=== PATIENT | female | born 1975 | race African-American/Black ===

== ENCOUNTER 2020-10-27 06:27 | Day surgery (SDC) | payer BC ==
[2020-10-17 11:51] VITALS: BMI 37.5
[2020-10-27] MEDS ORDERED: MIDAZOLAM HCL 2 MG/2 ML SINGLE DOSE VIAL ONE (07:51)
[2020-10-27] MEDS ORDERED: SUCCINYLCHOLINE CHLORIDE 200 MG/10 ML SYRINGE ONE (08:03)
[2020-10-27] MEDS ORDERED: PROPOFOL 20 ML ONE ×2 (08:03→08:20)
[2020-10-27] MEDS ORDERED: ceFAZolin SODIUM 1 GM VIAL ONE (08:04)
[2020-10-27] MEDS ORDERED: DEXAMETHASONE SOD PHOSPHATE 4 MG/1 ML VIAL ONE (08:06)
[2020-10-27] MEDS ORDERED: ONDANSETRON 4 MG/2 ML VIAL ONE (08:06)
[2020-10-27] MEDS ORDERED: BUPIVACAINE HCL/PF 0.5% (5 MG/ML) 30 ML VIAL IJ ONE (08:10)
[2020-10-27] MEDS ORDERED: LIDOCAINE HCL 1%, 10 MG/ML (20ML VIAL) INF ONE (08:10)
[2020-10-27] MEDS ORDERED: LIDOCAINE HCL 1%, 10 MG/ML (20ML VIAL) ONE (08:53)
[2020-10-27 09:51] VITALS: BP 116/71; PULSE 78; TEMP 98
== END 2020-10-27 09:56 | disposition home or self-care (01) ==
LOC: FASU 06:27
PROVIDERS: ATTEND Orthopaedic Surgery
PROC: 01N50ZZ Release Median Nerve, Open Approach (ICD-10-PCS; principal; 2020-10-27 08:11)
DX: G56.01 Carpal tunnel syndrome, right upper limb (principal); M65.831 Other synovitis and tenosynovitis, right forearm
CPT/HCPCS: 84703; 88304-TC

== ENCOUNTER 2021-03-10 08:36 | Emergency (ER) | payer BC ==
[2021-03-10 08:40] VITALS: BP 111/74; PULSE 83; TEMP 98.7; BMI 37.8
[2021-03-10] MEDS ORDERED: IBUPROFEN 600 MG TABLET (FP) PO ONE ×2 (08:41→09:24)
== END 2021-03-10 09:44 | disposition home or self-care (01) ==
LOC: JERFT 08:36
DX: M79.672 Pain in left foot (principal); V03.10XA Pedestrian on foot injured in collision with car, pick-up truck or van in traffic accident, initial encounter
CPT/HCPCS: 73630-TC-LT; 99283-25